=== PATIENT | male | born 1980 ===

== ENCOUNTER 2018-01-19 18:28 | Emergency (ER) | payer SELFPAY ==
[2018-01-19] MEDS ORDERED: Ketorolac Tromethamine 60 MG/2 ML VIAL ONE (18:43)
--- NOTE | 2018-01-19 19:13 | RAD ---
LEFT FOOT: 01/19/18 Three views. HISTORY: Foot pain. Small enthesophytes on the plantar calcaneus. No evidence of fracture identified. IMPRESSION: No evidence of acute fracture. POS: [facility]
== END 2018-01-19 19:25 | disposition home or self-care (01) ==
LOC: ERS 18:28
DX: S90.32XA Contusion of left foot, initial encounter (principal); F90.9 Attention-deficit hyperactivity disorder, unspecified type; W22.8XXA Striking against or struck by other objects, initial encounter
CPT/HCPCS: 96372; J1885

== ENCOUNTER 2019-04-18 15:00 | Emergency (ER) | payer SELFPAY ==
[2019-04-18] MEDS ORDERED: Lidocaine 1% w/Epinephrine 1:100K 20 ML VIAL ONE (15:19)
[2019-04-18 15:35] LABS: #Basophils 0.1 thou/uL (0.0-0.2); #Eosinphils 0.2 thou/uL (0.0-0.7); #Lymphocytes 2.4 thou/uL (1.20-3.40); #Monocytes 1.1 thou/uL (0.11-0.59); #Neutrophils 9.1 thou/uL (1.40-6.50); %Basophils 0.8 % (0.0-1.0); %Eosinophils 1.5 % (0.0-10.0); %Lymphocytes 18.8 % (21.0-51.0); %Monocytes 8.6 % (0.0-10.0); %Neutrophils 70.4 % (42.0-75.0); Hemoglobin 16.4 g/dL (14.0-18.0); Mean Corpuscular HGB CONC 34.2 g/dL (32.0-36.0); Mean Corpuscular Hemoglobin 32.2 pg (27.0-31.0); Mean Corpuscular Volume 94.3 fL (78.0-98.0); Mean Platelet Volume 7.6 fL (7.4-10.4); Platelet Count 346 thou/uL (130-400); RBC Distribution Width 11.6 % (11.5-14.5); White Blood Cell (WBC) Count 12.9 thou/uL (4.8-10.8)
--- NOTE | 2019-04-18 15:40 | RAD ---
XR Hand Lt 3 View STANDARD History: Injury. Amputation of the left pointer finger. Comparison: None. Findings: Soft tissue amputation of the distal phalanx index finger without osseous involvement. No a cute fracture. No radiopaque foreign object appreciated. Impression: Soft tissue amputation distal to the tuft index finger distal phalanx.
[2019-04-18 16:00] LABS: ALT (SGPT) 13 U/L (8-55); AST (SGOT) 12 U/L (5-34); Albumin 4.3 g/dL (3.5-5.0); Alkaline Phosphatase 81 U/L (40-110); Anion Gap 13 mmol/L (10-20); BUN (Urea Nitrogen) 10 mg/dL (8.9-20.6); Bilirubin, Total 0.4 mg/dL (0.2-1.2); Calc. Creatinine Clearance 0 mL/min (70-130); Calcium 9.5 mg/dL (7.8-10.44); Carbon Dioxide 23 mmol/L (22-29); Chloride 107 mmol/L (98-107); Estimated GFR-MDRD 82; Globulin 2.7 g/dL (2.4-3.5); Glucose 96 mg/dL (70-105); Potassium 3.9 mmol/L (3.5-5.1); Sodium 139 mmol/L (136-145)
--- NOTE | 2019-04-20 15:40 | EKG ---
Test Reason : Blood Pressure : / mmHG Vent. Rate : 079 BPM Atrial Rate : 079 BPM P-R Int : 134 ms QRS Dur : 078 ms QT Int : 354 ms P-R-T Axes : 044 -06 036 degrees QTc Int : 405 ms Normal sinus rhythm with sinus arrhythmia Cannot rule out Inferior infarct , age undetermined Abnormal ECG Confirmed by TYREL BRAVO M.D. ([id number]), editor news IDRIS ZAPATA ([id number]) on 04/20/2019 3:39:42 PM Referred By: Confirmed By:TYREL BRAVO M.D.
== END 2019-04-18 17:10 | disposition home or self-care (01) ==
LOC: ERS 15:00
DX: S68.111A Complete traumatic metacarpophalangeal amputation of left index finger, initial encounter (principal); J44.9 Chronic obstructive pulmonary disease, unspecified; F43.10 Post-traumatic stress disorder, unspecified; F98.8 Other specified behavioral and emotional disorders with onset usually occurring in childhood and adolescence; F41.9 Anxiety disorder, unspecified; F29 Unspecified psychosis not due to a substance or known physiological condition; F17.210 Nicotine dependence, cigarettes, uncomplicated; Z79.82 Long term (current) use of aspirin; W26.0XXA Contact with knife, initial encounter
CPT/HCPCS: 36415; 80053; 85025; 93005

== ENCOUNTER 2020-01-03 11:29 | Emergency (ER) | payer SELFPAY ==
[2020-01-03] MEDS ORDERED: Ketorolac Tromethamine 30 MG/ML VIAL ONE (12:06)
--- NOTE | 2020-01-03 12:27 | RAD ---
EXAM: 2 views of the right forearm HISTORY: Forearm pain after trauma COMPARISON: None FINDINGS: There is no evidence of acute fracture or dislocation. No soft tissue swelling is seen. No degenerative changes are seen in the wrist or elbow. IMPRESSION: No evidence of acute osseous abnormality.
--- NOTE | 2020-01-03 12:28 | RAD ---
EXAM: 3 views of the left wrist HISTORY: Wrist pain after trauma COMPARISON: None FINDINGS: 3 views of the left wrist shows no evidence of acute fracture or dislocation. Mild soft tis priya swelling is seen. No degenerative changes are present. IMPRESSION: No evidence of acute osseous abnormality.
--- NOTE | 2020-01-03 13:22 | RAD ---
EXAM: Right rib series with chest x-ray HISTORY: Rib pain after trauma COMPARISON: None FINDINGS: Single view of the chest shows a normal sized cardiomediastinal silhouette. There is no mariann dence of consolidation, mass, or pleural effusion. Multiple views of the right ribs shows no evidence of displaced rib fracture. No underlying pleural t hickening or pneumothorax are seen. IMPRESSION: 1. No evidence of displaced rib fracture. 2. No evidence of acute cardiopulmonary disease.
== END 2020-01-03 13:19 | disposition home or self-care (01) ==
LOC: ERS 11:29
DX: S20.211A Contusion of right front wall of thorax, initial encounter (principal); M79.601 Pain in right arm; J44.9 Chronic obstructive pulmonary disease, unspecified; F41.9 Anxiety disorder, unspecified; F43.10 Post-traumatic stress disorder, unspecified; F17.210 Nicotine dependence, cigarettes, uncomplicated; Z79.899 Other long term (current) drug therapy; Y04.8XXA Assault by other bodily force, initial encounter
CPT/HCPCS: 96372; J1885